=== PATIENT | male | born 1970 | race Caucasian/White ===

== ENCOUNTER 2019-12-29 21:33 | Emergency (ER) | payer OTHER ==
[~2019-12-29] VITALS: Ht 170.2 cm; Wt 87.5 kg
[2019-12-29] MEDS ORDERED: TRICOR145 MG PO (21:50)
[2019-12-29] MEDS ORDERED: CRESTOR20 MG PO (21:50)
[2019-12-29] MEDS ORDERED: BIKTARVY 50-201 EACH PO (21:50)
== END 2019-12-30 06:07 | disposition home or self-care (01) ==
LOC: ER 21:33
DX: F15.10 Other stimulant abuse, uncomplicated (principal); F06.4 Anxiety disorder due to known physiological condition; B20 Human immunodeficiency virus [HIV] disease